=== PATIENT | female | born 1975 | race Caucasian/White ===

== ENCOUNTER 2022-11-30 11:58 | Emergency (ER) | payer OTHER ==
[2022-11-30] MEDS ORDERED: SUBLIMAZE 100 MCG/2 ML IV ONE ×2 (12:14→13:33)
[2022-11-30] MEDS ORDERED: Zofran 4 MG/2 ML VIAL IV ONE ×3 (12:15→17:55)
[2022-11-30] MEDS ORDERED: Zofran 4 MG/2 ML VIAL ONE ×3 (12:17→17:55)
[2022-11-30] MEDS ORDERED: SUBLIMAZE 100 MCG/2 ML ONE ×2 (12:17→13:36)
[2022-11-30 12:45] LABS: BASOPHIL % 0.4 % (0.0-0.4); Basophil (Absolute #) 0.04 x10^3/uL (0-0.4); Eosinophil (Absolute #) 0.09 x10^3/uL (0-0.5); Hematocrit 41.2 % (35-47); Hemoglobin 13.8 g/dL (12.0-16.0); IMMATURE GRAN # 0.05 x10^3u/L (0.00-0.03); IMMATURE GRAN % 0.6 % (0.00-0.4); Lymphocyte (Absolute #) 1.84 x10^3/uL (1.0-4.6); Lymphocytes % 20.4 % (24.0-44.0); Mean Corpuscular Hemoglobin 29.8 pg (26-32); Mean Corpuscular Hgb Concent. 33.5 g/dL (32-36); Mean Platelet Volume 10.1 fL (7.5-11.0); Monocytes % 4.4 % (0.0-12.0); Neutrophil % 73.2 % (36.0-66.0); Platelet Count 230 x10^3/uL (150-450); Red Blood Count 4.63 x10^6/uL (4.1-5.4); Red Cell Distribution Width 12.4 % (11.5-14.0)
[2022-11-30 13:01] LABS: ALBUMIN 4.3 g/dL (3.5-5.0); ALKALINE PHOSPHATASE 99 U/L (38-126); AMYLASE 68 U/L (30-110); ANION GAP 12.4 MEQ/L (5-15); BLOOD UREA NITROGEN 17 mg/dL (7-17); CHLORIDE 105 mmol/L (98-107); Calcium 8.7 mg/dL (8.4-10.2); Carbon Dioxide 22 mmol/L (22-30); Creatinine 1 0.79 mg/dL (0.52-1.04); EST GLOMERULAR FILTRATION RATE > 60.0 ML/MIN; Glucose 187 mg/dL (74-106); LIPASE 80 U/L (23-300); Potassium 4.2 mmol/L (3.5-5.1); SGOT/AST 24 U/L (14-36); SGPT/ALT 28 U/L (0-35); SODIUM 135 mmol/L (137-145); Total Protein 7.2 g/dL (6.3-8.2)
--- NOTE | 2022-11-30 13:44 | XRAY ---
Indication: Abdomen pain, nausea, and vomiting. Multiple contiguous axial images obtained through the abdomen and pelvis using 100 cc Isovue 370 contrast. Comparison: None Lung bases clear. Heart not enlarged. Small hiatal hernia. Stomach is mildly fluid distended. Noncontrasted stomach and bowel loops appear nonobstructed. A few small bowels are mildly fluid distended up to 2.3 cm with fluid leveling unchanged on delayed imaging, ileus versus enteritis. Normal appendix. Previous hysterectomy. Very tiny pelvic free fluid. No free air. Liver demonstrate two 9 mm hemangiomas. Remaining liver, gallbladder, pancreas, spleen, adrenal glands, kidneys, ureters, bladder, and aorta are unremarkable. No pathologic retroperitoneal lymphadenopathy. Osseous structures intact. No ventral or inguinal hernias. Impression: 1. Mild fluid distended small bowel loops with fluid leveling unchanged on delayed imaging, ileus versus enteritis. Tiny pelvic free fluid may be related. 2. Incidental small hiatal hernia and tiny hepatic hemangiomas.
[2022-11-30] MEDS ORDERED: Sodium Chloride 0.9% 1000 ML 1,000 ML ONE ×2 (15:23→17:04)
[2022-11-30] MEDS ORDERED: Sodium Chloride 0.9% 1000 ML 1,000 ML IV STA ×2 (15:23→17:04)
--- NOTE | 2022-11-30 15:44 | ERPHSYRPT ---
- History of Present Illness Historian: patient, other () Exam Limitations: no limitations Patient Subjective Stated Complaint: pt here for pain to lower abd sudden onset after having sex today, she had hysterectomy 09/28/2022 Triage Nursing Assessment: pt alert, resp labored at times due to pain. laying on right side, skin pale, warm dry , has band aids to abd from surgery, no vaginal bleeding, Physician History: 47 yo wf who had a DaVinci Vag Hysterectomy on 09/28/22 presents w supra-pubic pain immediately follow sexual intercourse. Pain is a 10 and radiates to her rectum. She is nauseated wo vomiting. Fever/dysuria/hematuria are all denied. Timing/Duration: other (Before ER visit) Activities at Onset: other (Sexual intercourse) Quality: sharpness Abdominal Pain Onset Location: suprapubic Pain Radiation: other (Rectum) Modifying Factors: Improves With: nothing Associated Symptoms: denies symptoms Previous symptoms: no prior history Allergies/Adverse Reactions: No Known Drug Allergies Allergy (Unverified 11/30/22 11:59) Home Medications: Escitalopram Oxalate [Lexapro] 1 ea DAILY 11/30/22 [History] Hx Tetanus, Diphtheria Vaccination/Date Given: No Hx Influenza Vaccination/Date Given: No Hx Pneumococcal Vaccination/Date Given: No Immunizations Up to Date: Yes Travel Risk - International Travel Have you traveled outside of the country in past 3 weeks: No - Coronavirus Screening Are you exhibiting any of the following symptoms?: No Close contact with a COVID-19 positive Pt in past 14-21 Days: No - Vaccine Status Have you recieved a Covid-19 vaccination: No Shipping And Receiving Specialist: Unknown - Vaccination Dates Dates if Unknown: ? - Review of Systems Constitutional: No Symptoms Eyes: No Symptoms Ears, Nose, & Throat: No Symptoms Respiratory: No Symptoms Cardiac: No Symptoms Abdominal/Gastrointestinal: Other (Supra-pubic pain) Genitourinary Symptoms: No Symptoms Musculoskeletal: No Symptoms Skin: No Symptoms Neurological: No Symptoms Psychological: No Symptoms Endocrine: No Symptoms Hematologic/Lymphatic: No Symptoms Immunological/Allergic: No Symptoms - Past Medical History Pertinent Past Medical History: Yes Cardiac History: Hypertension Psycho-Social History: Depression - Past Surgical History Past Surgical History: Yes Female Surgical History: Hysterectomy, Tubal Ligation - Social History Smoking Status: Never smoker Exposure to second hand smoke: No Drug Use: none Patient Lives Alone: No - Female History Hx Last Menstrual Period: hyster Hx Now: No - Nursing Vital Signs Nursing Vital Signs: Initial Vital Signs Temperature 97.0 F 11/30/22 12:05 Pulse Rate 74 11/30/22 12:05 Respiratory Rate 18 11/30/22 12:05 Blood Pressure 124/99 11/30/22 12:05 Pain Scale Pain Intensity 5 WNL - Physical Exam General Appearance: mild distress Eye Exam: PERRL/EOMI, eyes nml inspection Ears, Nose, Throat Exam: normal ENT inspection, TMs normal, pharynx normal, moist mucous membranes Neck Exam: normal inspection, non-tender, supple, full range of motion, No meningismus, No mass, No Brudzinski, No Kernig's Respiratory Exam: normal breath sounds, lungs clear, airway intact Cardiovascular Exam: regular rate/rhythm, normal heart sounds, normal peripheral pulses, capillary refill <2 sec, No murmur Gastrointestinal/Abdomen Exam: soft, other (Moderate supra-pubic TTP wo guarding or rebound) Pelvic Exam: other (Bloody tinged fluid in vaginal canal) Back Exam: normal inspection, normal range of motion, No CVA tenderness, No vertebral tenderness Extremity Exam: normal inspection, normal range of motion Neurologic Exam: alert, oriented x 3, cooperative, secondary set up man II-XII nml as tested Skin Exam: normal color, warm, dry Lymphatic Exam: No adenopathy SpO2 Interpretation: normal SpO2: 97 O2 Delivery: Room Air - Course Nursing assessment & vital signs reviewed: Yes - CT Exams Abdomen/Pelvis CT Interpretation: Discussed w/radiologist (Hiatal hernia/Fluid distended small bowel loops) Ordered Tests: Active Orders 24 hr Category Date Time Status ABDOMEN AND PELVIS W CONTRAST [CT] Stat Exams 11/30/22 12:52 Completed AMYLASE Stat Lab 11/30/22 12:39 Completed CBC W DIFF Stat Lab 11/30/22 12:16 Completed CMP Stat Lab 11/30/22 12:39 Completed CULTURE,URINE Stat Lab 11/30/22 14:42 Received LIPASE Stat Lab 11/30/22 12:39 Completed UA W/RFX UR CULTURE Stat Lab 11/30/22 14:42 Completed Medication Summary Generic Name Dose Route Start Last Admin Trade Name Freq PRN Reason Stop Dose Admin Sodium Chloride 1,000 mls @ 999 mls/hr 11/30/22 17:04 11/30/22 17:05 Sodium Chloride 0.9% 1000 Ml IV 11/30/22 18:04 999 mls/hr .Q1H1M STA Administration Discontinued Medications Generic Name Dose Route Start Last Admin Trade Name Ninfa PRN Reason Stop Dose Admin Fentanyl Citrate 100 mcg 11/30/22 12:14 11/30/22 12:18 Fentanyl Citrate 100 Mcg/2 Ml* Vial IV 11/30/22 12:15 100 mcg STAT ONE Administration Fentanyl Citrate Confirm 11/30/22 12:17 Fentanyl Citrate 100 Mcg/2 Ml* Vial Administered 11/30/22 12:18 Dose 100 mcg .ROUTE .STK-MED ONE Fentanyl Citrate 50 mcg 11/30/22 13:33 11/30/22 13:38 Fentanyl Citrate 100 Mcg/2 Ml* Vial IV 11/30/22 13:34 50 mcg STAT ONE Administration Fentanyl Citrate Confirm 11/30/22 13:36 Fentanyl Citrate 100 Mcg/2 Ml* Vial Administered 11/30/22 13:37 Dose 100 mcg .ROUTE .STK-MED ONE Hydromorphone HCl 0.5 mg 11/30/22 16:17 11/30/22 17:53 Hydromorphone 1 Mg/1ml Inj 1 Mg/Ml Syringe IV 11/30/22 16:18 0.5 mg STAT ONE Administration Hydromorphone HCl Confirm 11/30/22 17:51 Hydromorphone 1 Mg/1ml Inj 1 Mg/Ml Syringe Administered 11/30/22 17:52 Dose 1 mg .ROUTE .STK-MED ONE Sodium Chloride 1,000 mls @ 999 mls/hr 11/30/22 15:23 11/30/22 16:32 Sodium Chloride 0.9% 1000 Ml IV 11/30/22 16:23 Infused .Q1H1M STA Infusion Sodium Chloride Confirm 11/30/22 15:23 Sodium Chloride 0.9% 1000 Ml Administered 11/30/22 15:24 Dose 1,000 mls @ ud .ROUTE .STK-MED ONE Sodium Chloride Confirm 11/30/22 17:04 Sodium Chloride 0.9% 1000 Ml Administered 11/30/22 17:05 Dose 1,000 mls @ ud .ROUTE .STK-MED ONE Ondansetron HCl 4 mg 11/30/22 12:15 11/30/22 12:18 Ondansetron Hcl 4 Mg/2 Ml Vial IV 11/30/22 12:16 4 mg STAT ONE Administration Ondansetron HCl Confirm 11/30/22 12:17 Ondansetron Hcl 4 Mg/2 Ml Vial Administered 11/30/22 12:18 Dose 4 mg .ROUTE .STK-MED ONE Ondansetron HCl 4 mg 11/30/22 14:10 11/30/22 14:12 Ondansetron Hcl 4 Mg/2 Ml Vial IV 11/30/22 14:11 4 mg STAT ONE Administration Ondansetron HCl Confirm 11/30/22 14:11 Ondansetron Hcl 4 Mg/2 Ml Vial Administered 11/30/22 14:12 Dose 4 mg .ROUTE .STK-MED ONE Ondansetron HCl 4 mg 11/30/22 17:55 11/30/22 17:56 Ondansetron Hcl 4 Mg/2 Ml Vial IV 11/30/22 17:56 4 mg STAT ONE Administration Ondansetron HCl Confirm 11/30/22 17:55 Ondansetron Hcl 4 Mg/2 Ml Vial Administered 11/30/22 17:56 Dose 4 mg .ROUTE .STK-MED ONE Lab/Rad Data: Laboratory Result Diagrams 11/30/22 12:16 11/30/22 12:39 Laboratory Results 11/30/22 11/30/22 11/30/22 Range/Units 14:42 12:39 12:16 WBC 9.0 (4.0-10.5) x10^3/uL RBC 4.63 (4.1-5.4) x10^6/uL Hgb 13.8 (12.0-16.0) g/dL Hct 41.2 (35-47) % MCV 89.0 (78-100) fL MCH 29.8 (26-32) pg MCHC 33.5 (32-36) g/dL RDW 12.4 (11.5-14.0) % Plt Count 230 (150-450) x10^3/uL MPV 10.1 (7.5-11.0) fL Gran % 73.2 H (36.0-66.0) % Immature Gran % (Auto) 0.6 H (0.00-0.4) % Nucleat RBC Rel Count 0.0 (0.00-0.1) % Eos # (Auto) 0.09 (0-0.5) x10^3/uL Immature Gran # (Auto) 0.05 H (0.00-0.03) x10^3u/L Absolute Lymphs (auto) 1.84 (1.0-4.6) x10^3/uL Absolute Monos (auto) 0.40 (0.0-1.3) x10^3/uL Absolute Nucleated RBC 0.00 (0.00-0.01) x10^3u/L Lymphocytes % 20.4 L (24.0-44.0) % Monocytes % 4.4 (0.0-12.0) % Eosinophils % 1.0 (0.00-5.0) % Basophils % 0.4 (0.0-0.4) % Absolute Granulocytes 6.60 (1.4-6.9) x10^3/uL Basophils # 0.04 (0-0.4) x10^3/uL Sodium 135 L (137-145) mmol/L Potassium 4.2 (3.5-5.1) mmol/L Chloride 105 (98-107) mmol/L Carbon Dioxide 22 (22-30) mmol/L Anion Gap 12.4 (5-15) MEQ/L BUN 17 (7-17) mg/dL Creatinine 0.79 (0.52-1.04) mg/dL Estimated GFR > 60.0 ML/MIN Glucose 187 H (74-106) mg/dL Calcium 8.7 (8.4-10.2) mg/dL Total Bilirubin 0.70 (0.2-1.3) mg/dL AST 24 (14-36) U/L ALT 28 (0-35) U/L Alkaline Phosphatase 99 (38-126) U/L Serum Total Protein 7.2 (6.3-8.2) g/dL Albumin 4.3 (3.5-5.0) g/dL Amylase 68 (30-110) U/L Lipase 80 (23-300) U/L Urine Color Red A (Yellow) Urine Appearance Turbid A (Clear) Urine pH 7.0 (4.6-8.0) Ur Specific [place] >=1.030 A (1.005-1.030) Urine Protein 300 A (Negative) Urine Glucose (UA) 100 A (Negative) mg/dL Urine Ketones Negative (Negative) Urine Blood Large A (Negative) Urine Nitrite Positive A (Negative) Urine Bilirubin Moderate A (Negative) Urine Urobilinogen 0.2 (0.2) mg/dL Ur Leukocyte Esterase Large A (Negative) U Hyaline Cast (Auto) None Seen (0-2) /LPF Urine Microscopic RBC >100 A (0-5) /HPF Urine Microscopic WBC >100 A (0-5) /HPF Ur Epithelial Cells Rare (None Seen) /HPF Urine Bacteria Rare A (None Seen) /HPF Urine Sperm Few A (None Seen) /HPF Urine Culture Reflexed YES (NO) - Progress Progress Note: 11/30/22 15:50 Nursing note and vital signs reviewed Additional history per Fentanyl 100mcg IV/4mg IV Zofran w moderate improvement in pain Pt developed additional pain, so 50mcg IV Fentanyl given Pt developed hypotension, so 1L NS bolus given 11/30/22 16:[address] Hutchison, will see pt in [facility] if accepted by ER physician Pt accepted by Dr. Temple, [facility] Additional 1L NS bolus for borderline hypotension 0.5mg IV Dilaudid before transfer Vital signs stable when EMS assumed care of pt 11/30/22 17:59 Counseled pt/family regarding: lab results, diagnosis, rad results Medical Desision Making - Independent Historian Additional History obtained from: Spouse - Discussion of managment Care discussed with:: specialist Will see patient: in ED - Diagnostic Testing Diagnostic Testing: Diagnostic tests were ordered,analyzed, and reviewed by me and used in my medical decision making for this patient. Radiologic studies (if ordered) were read by me initially then discussed with the radiologist . All reviewed - Departure Departure Disposition: Transfer Clinical Impression: Vaginal bleeding Condition: Stable Critical Care Time: No Referrals: JAMIE GORMAN MD [Primary Care Provider] - Follow up/PCP as directed
[2022-11-30] MEDS ORDERED: Hydromorphone 1 mg/ml Injection IV ONE (16:17)
[2022-11-30 16:35] LABS: Appearance Turbid (Clear); Bacteria Rare /HPF (None Seen); Bilirubin Moderate (Negative); Blood Large (Negative); Epithelial Cells Rare /HPF (None Seen); Glucose, Urine 100 mg/dL (Negative); Ketones Negative (Negative); Leukocyte Esterase Large (Negative); Nitrite Positive (Negative); Protein,Urine Dip 300 (Negative); RBC >100 /HPF (0-5); Specific Gravity >=1.030 (1.005-1.030); Urobilinogen 0.2 mg/dL (0.2); WBC >100 /HPF (0-5)
[2022-11-30 16:36] LABS: ADD URINE CULTURE? YES (NO); Hyaline Casts None Seen /LPF (0-2); Sperm Few /HPF (None Seen)
[2022-11-30] MEDS ORDERED: Hydromorphone 1 mg/ml Injection ONE (17:51)
[2022-11-30 18:03] VITALS: BP 109/73; PULSE 95
[2022-11-30 18:04] VITALS: O2SAT 97
== END 2022-11-30 18:11 | disposition short-term general hospital (02) ==
LOC: ED 11:58
DX: N93.9 Abnormal uterine and vaginal bleeding, unspecified (principal); R10.2 Pelvic and perineal pain; R11.0 Nausea; I10 Essential (primary) hypertension; Z79.899 Other long term (current) drug therapy; Z28.310 Unvaccinated for COVID-19
CPT/HCPCS: 36415; 74177; 80053; 81001; 82150; 83690; 85025; 87086; 96360; 96374; 96375; 96376; 99285; J1170; J2405; J3010